=== PATIENT | male | born 1990 | race African-American/Black ===

== ENCOUNTER 2021-06-21 16:27 | Inpatient (IN) | payer SELFPAY ==
[2021-06-21] MEDS ORDERED: ceFAZolin 2 GM/DEX 5% 100 ML BAG ONE (16:33)
[2021-06-21] MEDS ORDERED: Boostrix 0.5 ML (Tdap) VIAL ONE ×2 (16:33→18:12)
[2021-06-21] MEDS ORDERED: Succinylcholine 200 MG/10 ml SYRINGE FS ONE (16:34)
[2021-06-21 16:43] LABS: #Basophils 0.1 thou/uL (0.0-0.2); #Eosinphils 0.2 thou/uL (0.0-0.7); #Lymphocytes 5.9 thou/uL (1.20-3.40); #Monocytes 0.8 thou/uL (0.11-0.59); #Neutrophils 12.1 thou/uL (1.40-6.50); %Basophils 0.4 % (0.0-1.0); %Eosinophils 0.8 % (0.0-10.0); %Monocytes 4.4 % (0.0-10.0); %Neutrophils 63.5 % (42.0-75.0); Hemoglobin 12.7 g/dL (14.0-18.0); Mean Corpuscular HGB CONC 33.6 g/dL (32.0-36.0); Mean Corpuscular Hemoglobin 30.8 pg (27.0-31.0); Mean Corpuscular Volume 91.8 fL (78.0-98.0); Mean Platelet Volume 9.4 fL (7.4-10.4); Platelet Count 317 thou/uL (130-400); RBC Distribution Width 11.6 % (11.5-14.5); White Blood Cell (WBC) Count 19.1 thou/uL (4.8-10.8)
[2021-06-21] MEDS ORDERED: Fentanyl 100 MCG/2 ML VIAL ONE (16:43)
[2021-06-21] MEDS ORDERED: Rocuronium Bromide 10 MG/ML (10ML VIAL) ONE ×2 (16:45→17:07)
[2021-06-21] MEDS ORDERED: Phenylephrine 10 MG/ML VIAL ONE ×2 (16:46→17:50)
[2021-06-21] MEDS ORDERED: Fentanyl 250 MCG/5 ML VIAL ONE (16:46)
[2021-06-21] MEDS ORDERED: Midazolam HCl 2 mg/2 ml Vial ONE ×2 (16:46→17:54)
[2021-06-21 16:57] LABS: Prothrombin Time 13.6 sec (12.0-14.7)
[2021-06-21 16:58] LABS: PTT 22.9 sec (22.9-36.1)
[2021-06-21 17:03] LABS: Bacteria/HPF None Seen HPF (None Seen); Bilirubin Negative (Negative); Blood, Urine Negative (Negative); Clarity Clear (Clear); Glucose, Urine (Dipstick) Greater than 1000 mg/dL (Negative); Ketone, Urine Negative (Negative); Leukocyte Negative Leu/uL (Negative); Nitrite Negative (Negative); Protein, Urine (Dipstick) Negative (Neg-Trace); RBC/HPF 0-3 HPF (0-3); Specific Gravity, Urine 1.031 (1.002-1.036); Squamous Epithelial None Seen HPF (0-3); Urobilinogen Normal mg/dL (Less than 2)
[2021-06-21 17:03] LABS: ALT (SGPT) 49 U/L (8-55); AST (SGOT) 38 U/L (5-34); Albumin 3.6 g/dL (3.5-5.0); Alkaline Phosphatase 60 U/L (40-110); Anion Gap 17 mmol/L (10-20); BUN (Urea Nitrogen) 13 mg/dL (8.9-20.6); Bilirubin, Total 0.3 mg/dL (0.2-1.2); Calc. Creatinine Clearance 0 mL/min (70-130); Calcium 8.7 mg/dL (7.8-10.44); Carbon Dioxide 23 mmol/L (22-29); Chloride 96 mmol/L (98-107); Globulin 2.9 g/dL (2.4-3.5); Potassium 3.2 mmol/L (3.5-5.1); Protein, Total 6.5 g/dL (6.0-8.3); Sodium 133 mmol/L (136-145)
[2021-06-21] MEDS ORDERED: Calcium Chloride 1 GM/10 ML Abboject SYRINGE ONE (17:07)
[2021-06-21 17:13] LABS: Glucose 778 mg/dL (70-105)
[2021-06-21] MEDS ORDERED: Insulin Regular 300 UNITS/3 ML VIAL ONE (18:05)
[2021-06-21] MEDS ORDERED: Heparin 5,000 UNITS/ML VIAL ONE (18:21)
[2021-06-21] MEDS ORDERED: Rocuronium Bromide 50 MG/5 ML VIAL ONE ×2 (19:38→20:49)
[2021-06-21] MEDS ORDERED: hydrALAZINE 20 MG/ML VIAL SLOW IVP PRN (20:38)
[2021-06-21] MEDS ORDERED: Ondansetron ODT 4 MG TAB PO PRN (20:38)
[2021-06-21] MEDS ORDERED: Dextrose 50% Abboject 50 ML SYRINGE SLOW IVP PRN (20:38)
[2021-06-21] MEDS ORDERED: Dextrose 5% in Water 1,000 ML IV PRN (20:38)
[2021-06-21] MEDS ORDERED: Ondansetron PF 4 MG/2 ML Vial IVP PRN (20:38)
[2021-06-21] MEDS ORDERED: fentaNYL Citrate/PF 2,000 MCG in Sodium Chloride 0.9% 60 ML IV PRN (20:43)
[2021-06-21] MEDS ORDERED: Morphine 4 MG/ML VIAL SLOW IVP PRN (20:54)
[2021-06-21] MEDS ORDERED: Fentanyl CADD 100 ML IV SCH (21:00)
[2021-06-21] MEDS ORDERED: Fentanyl CADD 100 ML ONE (21:51)
[2021-06-21] MEDS: Famotidine/PF 20 mg/2ml Vial SLOW IVP SCH (21:59)
[2021-06-21 22:02] LABS: #Monocytes 1.1 thou/uL (0.11-0.59); #Neutrophils 10.5 thou/uL (1.40-6.50); %Basophils 0.1 % (0.0-1.0); %Eosinophils 0.2 % (0.0-10.0); %Monocytes 7.8 % (0.0-10.0); Hemoglobin 13.3 g/dL (14.0-18.0); Mean Corpuscular Hemoglobin 31.4 pg (27.0-31.0); Mean Corpuscular Volume 87.4 fL (78.0-98.0); Mean Platelet Volume 9.7 fL (7.4-10.4); Platelet Count 201 thou/uL (130-400); RBC Distribution Width 12.3 % (11.5-14.5); Red Blood Cell (RBC) Count 4.22 mill/uL (4.70-6.10); White Blood Cell (WBC) Count 13.6 thou/uL (4.8-10.8)
[2021-06-21 22:16] LABS: Anion Gap 12 mmol/L (10-20); BUN (Urea Nitrogen) 13 mg/dL (8.9-20.6); Calc. Creatinine Clearance 0 mL/min (70-130); Calcium 8.8 mg/dL (7.8-10.44); Carbon Dioxide 21 mmol/L (22-29); Chloride 110 mmol/L (98-107); Glucose 402 mg/dL (70-105); Magnesium 1.9 mg/dL (1.6-2.6); Phosphorus 3.8 mg/dL (2.3-4.7); Potassium 4.2 mmol/L (3.5-5.1); Sodium 139 mmol/L (136-145)
[2021-06-21] MEDS: Sodium Chloride 0.9% 1,000 ML IV SCH (22:16)
[2021-06-21 22:22] LABS: Lactic Acid 3.3 mmol/L (0.5-2.2)
[2021-06-22] MEDS ORDERED: Bacitracin 1 PK TOP SCH (00:45)
[2021-06-22] MEDS ORDERED: HUMULIN R 100 UNITS in Sodium Chloride 0.9% 100 ML IVPB SCH (00:45)
[2021-06-22] MEDS: Lantus 1000 UNITS/10 ML VIAL SC SCH ×2 (00:59→21:26)
[2021-06-22 02:54] LABS: Lactic Acid 2.2 mmol/L (0.5-2.2)
[2021-06-22 02:59] LABS: Phosphorus 3.9 mg/dL (2.3-4.7)
[2021-06-22 03:00] LABS: Anion Gap 12 mmol/L (10-20); BUN (Urea Nitrogen) 13 mg/dL (8.9-20.6); Calc. Creatinine Clearance 202 mL/min (70-130); Calcium 8.8 mg/dL (7.8-10.44); Carbon Dioxide 23 mmol/L (22-29); Chloride 110 mmol/L (98-107); Glucose 310 mg/dL (70-105); Magnesium 1.7 mg/dL (1.6-2.6); Potassium 4.4 mmol/L (3.5-5.1); Sodium 141 mmol/L (136-145)
[2021-06-22 03:06] LABS: #Lymphocytes 1.4 thou/uL (1.20-3.40); #Monocytes 0.5 thou/uL (0.11-0.59); #Neutrophils 7.1 thou/uL (1.40-6.50); %Eosinophils 0.1 % (0.0-10.0); %Lymphocytes 15.7 % (21.0-51.0); %Neutrophils 79.3 % (42.0-75.0); Mean Corpuscular HGB CONC 37.1 g/dL (32.0-36.0); Mean Corpuscular Hemoglobin 32.2 pg (27.0-31.0); Mean Corpuscular Volume 86.7 fL (78.0-98.0); Mean Platelet Volume 9.3 fL (7.4-10.4); Platelet Count 183 thou/uL (130-400); RBC Distribution Width 12.6 % (11.5-14.5); Red Blood Cell (RBC) Count 4.03 mill/uL (4.70-6.10)
[2021-06-22 03:11] LABS: CK (CPK) 4873 U/L (30-200)
[2021-06-22 03:12] LABS: Actual Bicarbonate (HCO3a) 21.9 mEq/L (22-28); Base Excess (BEa) -2.7 mEq/L (-2.0 to +3.0); CO2 Tension 37.6 mmHg (35.0-45.0); Calcium, Ionized (arterial) 1.17 mmol/L (1.12-1.30); Carboxyhemoglobin (COHb) 0.9 gm% (0.0-3.0); Hemoglobin (Hb) 12.8 g/dL (14.0-18.0); O2 Tension (PaO2), arterial 151.8 mmHg (80.0-100.0); Potassium - ABG Lab 3.97 mmol/L (3.70-5.30); pH, Arterial 7.38 (7.35-7.45)
[2021-06-22 03:14] LABS: Puncture Site Arterial Line
[2021-06-22] MEDS: CEFAZOLIN 2 GM, Admixture Fee 1 EACH in Sodium Chloride 0.9% 100 ML IVPB SCH ×3 (04:55→20:41)
[2021-06-22] MEDS: Sodium Chloride 0.9% 1,000 ML IV SCH ×3 (04:55→21:41)
[2021-06-22 05:34] LABS: SARS-CoV-2 NAA Rapid Test Not Detected (NotDetected)
[2021-06-22] MEDS ORDERED: Magnesium Sulfate 3 GM in Sodium Chloride 0.9% 100 ML IVPB SCH (09:00)
[2021-06-22] MEDS ORDERED: Lantus 1000 UNITS/10 ML VIAL SC SCH (09:00)
[2021-06-22] MEDS: Famotidine/PF 20 mg/2ml Vial SLOW IVP SCH ×2 (09:17→21:25)
[2021-06-22] MEDS ORDERED: Lactated Ringer's 1,000 ML IV SCH (10:00)
[2021-06-22] MEDS: HumaLOG 300 UNITS/3 ML VIAL SC PRN ×3 (13:02→21:27)
[2021-06-22] MEDS ORDERED: diphenhydrAMINE 50 MG/ML VIAL IM PRN (15:00)
[2021-06-22] MEDS ORDERED: HYDROmorphone 10 mg/100 ml CADD IVPB PRN (15:00)
[2021-06-22] MEDS ORDERED: Promethazine HCl 25 MG/ML VIAL IM PRN (15:00)
[2021-06-22] MEDS ORDERED: diphenhydrAMINE 50 MG/ML VIAL IVP PRN (15:00)
[2021-06-22] MEDS ORDERED: Zolpidem Tartrate 5 MG TAB PO PRN (15:00)
[2021-06-22] MEDS ORDERED: Communication Order-Pharmacy FS SCH (15:00)
[2021-06-22] MEDS ORDERED: Naloxone HCl 0.4 mg/ml Vial IV PRN (15:00)
[2021-06-22] MEDS ORDERED: diphenhydrAMINE 25 MG CAP PO PRN (15:00)
[2021-06-22] MEDS ORDERED: Ondansetron PF 4 MG/2 ML Vial IVP PRN (15:00)
[2021-06-22] MEDS ORDERED: Sodium Chloride 0.9% 500 ML IV SCH (21:45)
[2021-06-22] MEDS ORDERED: Furosemide 20 MG/2 ML VIAL SLOW IVP SCH (23:45)
[2021-06-22] MEDS ORDERED: Magnesium 2 GM/50 ML 2 GM in Premix Bag 1 BAG IVPB SCH (23:45)
[2021-06-23] MEDS: HumaLOG 300 UNITS/3 ML VIAL SC PRN ×5 (00:29→18:20)
[2021-06-23] MEDS: CEFAZOLIN 2 GM, Admixture Fee 1 EACH in Sodium Chloride 0.9% 100 ML IVPB SCH ×3 (03:41→23:08)
[2021-06-23 04:06] LABS: #Lymphocytes 2.3 thou/uL (1.20-3.40); #Monocytes 0.9 thou/uL (0.11-0.59); #Neutrophils 7.9 thou/uL (1.40-6.50); %Basophils 0.3 % (0.0-1.0); %Eosinophils 0.1 % (0.0-10.0); %Lymphocytes 20.4 % (21.0-51.0); %Neutrophils 71.2 % (42.0-75.0); Hemoglobin 11.1 g/dL (14.0-18.0); Mean Corpuscular Hemoglobin 29.9 pg (27.0-31.0); Mean Corpuscular Volume 90.6 fL (78.0-98.0); Mean Platelet Volume 9.1 fL (7.4-10.4); Platelet Count 186 thou/uL (130-400); RBC Distribution Width 12.9 % (11.5-14.5); Red Blood Cell (RBC) Count 3.71 mill/uL (4.70-6.10); White Blood Cell (WBC) Count 11.1 thou/uL (4.8-10.8)
[2021-06-23 04:43] LABS: Anion Gap 13 mmol/L (10-20); BUN (Urea Nitrogen) 10 mg/dL (8.9-20.6); CK (CPK) 1784 U/L (30-200); Calc. Creatinine Clearance 185 mL/min (70-130); Calcium 8.1 mg/dL (7.8-10.44); Carbon Dioxide 25 mmol/L (22-29); Chloride 110 mmol/L (98-107); Glucose 230 mg/dL (70-105); Magnesium 2.5 mg/dL (1.6-2.6); Potassium 4.2 mmol/L (3.5-5.1); Sodium 144 mmol/L (136-145)
[2021-06-23 05:19] LABS: Troponin I Less than 0.010 ng/mL (< 0.028)
[2021-06-23] MEDS ORDERED: HYDROmorphone 10 mg/100 ml CADD IVPB PRN (06:38)
[2021-06-23] MEDS: Sodium Chloride 0.9% 1,000 ML IV SCH (06:57)
[2021-06-23] MEDS ORDERED: Sodium Phosphate 15 MMOL in Sodium Chloride 0.9% 250 ML 250 ML IVPB SCH (07:45)
[2021-06-23] MEDS ORDERED: Lantus 1000 UNITS/10 ML VIAL SC SCH ×2 (09:00→21:00)
[2021-06-23] MEDS: Enoxaparin Sodium 40 MG/0.4 ML SYRINGE SC SCH (10:26)
[2021-06-23] MEDS: Aspirin 81 mg Enteric Coated Tablet PO SCH (10:27)
[2021-06-23] MEDS: Famotidine/PF 20 mg/2ml Vial SLOW IVP SCH ×2 (10:27→22:20)
[2021-06-23] MEDS: Bacitracin 1 PK TOP SCH ×2 (10:27→22:20)
[2021-06-23 13:52] LABS: Actual Bicarbonate (HCO3a) 21.6 mEq/L (22-28); Analyzer IN Cardio OR; Base Excess (BEa) -3.9 mEq/L (-2.0 to +3.0); CO2 Tension 41.3 mmHg (35.0-45.0); Calcium, Ionized (arterial) 1.21 mmol/L (1.12-1.30); Carboxyhemoglobin (COHb) 1.2 gm% (0.0-3.0); Hemoglobin (Hb) 12.7 g/dL (14.0-18.0); pH, Arterial 7.34 (7.35-7.45)
[2021-06-23 13:53] LABS: Actual Bicarbonate (HCO3a) 21.9 mEq/L (22-28); Analyzer IN Cardio OR; Base Excess (BEa) -3.6 mEq/L (-2.0 to +3.0); CO2 Tension 41.4 mmHg (35.0-45.0); Calcium, Ionized (arterial) 1.41 mmol/L (1.12-1.30); Carboxyhemoglobin (COHb) 0.7 gm% (0.0-3.0); Hemoglobin (Hb) 10.9 g/dL (14.0-18.0); O2 Tension (PaO2), arterial 488.8 mmHg (80.0-100.0); Potassium - ABG Lab 3.49 mmol/L (3.70-5.30); pH, Arterial 7.34 (7.35-7.45)
[2021-06-23 13:53] LABS: Actual Bicarbonate (HCO3a) 19.7 mEq/L (22-28); Analyzer IN Cardio OR; Base Excess (BEa) -5.6 mEq/L (-2.0 to +3.0); CO2 Tension 37.8 mmHg (35.0-45.0); Calcium, Ionized (arterial) 1.28 mmol/L (1.12-1.30); Carboxyhemoglobin (COHb) 0.4 gm% (0.0-3.0); Hemoglobin (Hb) 11.4 g/dL (14.0-18.0); Potassium - ABG Lab 3.71 mmol/L (3.70-5.30); pH, Arterial 7.34 (7.35-7.45)
[2021-06-23 13:53] LABS: Actual Bicarbonate (HCO3a) 20.9 mEq/L (22-28); Analyzer IN Cardio OR; CO2 Tension 41.5 mmHg (35.0-45.0); Calcium, Ionized (arterial) 1.24 mmol/L (1.12-1.30); Carboxyhemoglobin (COHb) 0.6 gm% (0.0-3.0); Hemoglobin (Hb) 12.2 g/dL (14.0-18.0); Potassium - ABG Lab 4.03 mmol/L (3.70-5.30); pH, Arterial 7.32 (7.35-7.45)
[2021-06-23 13:54] LABS: Actual Bicarbonate (HCO3a) 22.1 mEq/L (22-28); Base Excess (BEa) -2.9 mEq/L (-2.0 to +3.0); Carboxyhemoglobin (COHb) 0.9 gm% (0.0-3.0); Hemoglobin (Hb) 11.2 g/dL (14.0-18.0); O2 Tension (PaO2), arterial 343.6 mmHg (80.0-100.0); Potassium - ABG Lab 3.75 mmol/L (3.70-5.30); pH, Arterial 7.37 (7.35-7.45)
[2021-06-23 13:54] LABS: Actual Bicarbonate (HCO3a) 22.7 mEq/L (22-28); Analyzer IN Cardio OR; Base Excess (BEa) -2.3 mEq/L (-2.0 to +3.0); Calcium, Ionized (arterial) 1.08 mmol/L (1.12-1.30); Carboxyhemoglobin (COHb) 0.6 gm% (0.0-3.0); Hemoglobin (Hb) 11.2 g/dL (14.0-18.0); pH, Arterial 7.37 (7.35-7.45)
[2021-06-23 13:55] LABS: Analyzer IN Cardio OR; Calcium, Ionized (arterial) 1.02 mmol/L (1.12-1.30); Puncture Site Arterial Line
[2021-06-23 13:56] LABS: Puncture Site Arterial Line
[2021-06-23 13:56] LABS: O2 Tension (PaO2), arterial 506.8 mmHg (80.0-100.0); Puncture Site Arterial Line
[2021-06-23 13:57] LABS: Puncture Site Arterial Line
[2021-06-23 13:58] LABS: O2 Tension (PaO2), arterial 524.6 mmHg (80.0-100.0); Puncture Site Arterial Line
[2021-06-23 13:58] LABS: Puncture Site Arterial Line
[2021-06-23] MEDS: traMADol HCl 50 MG TAB PO PRN (18:20)
[2021-06-23] MEDS: Acetaminophen 500 MG TAB PO SCH (18:20)
[2021-06-23] MEDS: traMADol HCl 50 MG TAB PO SCH (18:20)
[2021-06-23] MEDS: Gabapentin 300 MG CAP PO SCH (22:18)
[2021-06-23] MEDS: Senokot S 8.6-50 MG TAB PO SCH (22:18)
[2021-06-23] MEDS: Metoprolol Tartrate 25 MG TAB PO SCH (22:20)
[2021-06-24] MEDS: Acetaminophen 500 MG TAB PO SCH ×5 (00:13→23:15)
[2021-06-24] MEDS: traMADol HCl 50 MG TAB PO SCH ×5 (00:14→23:16)
[2021-06-24] MEDS: HumaLOG 300 UNITS/3 ML VIAL SC PRN ×5 (01:44→23:43)
[2021-06-24] MEDS: CEFAZOLIN 2 GM, Admixture Fee 1 EACH in Sodium Chloride 0.9% 100 ML IVPB SCH ×3 (04:53→20:28)
[2021-06-24 06:54] LABS: #Lymphocytes 2.2 thou/uL (1.20-3.40); #Monocytes 0.8 thou/uL (0.11-0.59); #Neutrophils 7.2 thou/uL (1.40-6.50); %Basophils 0.3 % (0.0-1.0); %Eosinophils 0.5 % (0.0-10.0); %Lymphocytes 21.5 % (21.0-51.0); %Monocytes 7.4 % (0.0-10.0); %Neutrophils 70.4 % (42.0-75.0); Hemoglobin 9.6 g/dL (14.0-18.0); Mean Corpuscular HGB CONC 33.1 g/dL (32.0-36.0); Mean Corpuscular Hemoglobin 29.9 pg (27.0-31.0); Mean Corpuscular Volume 90.4 fL (78.0-98.0); Mean Platelet Volume 8.4 fL (7.4-10.4); Platelet Count 198 thou/uL (130-400); RBC Distribution Width 12.4 % (11.5-14.5); Red Blood Cell (RBC) Count 3.22 mill/uL (4.70-6.10); White Blood Cell (WBC) Count 10.3 thou/uL (4.8-10.8)
[2021-06-24 07:13] LABS: Anion Gap 10 mmol/L (10-20); BUN (Urea Nitrogen) 13 mg/dL (8.9-20.6); Calc. Creatinine Clearance 231 mL/min (70-130); Calcium 8.1 mg/dL (7.8-10.44); Carbon Dioxide 28 mmol/L (22-29); Chloride 108 mmol/L (98-107); Glucose 225 mg/dL (70-105); Magnesium 2.4 mg/dL (1.6-2.6); Phosphorus 2.3 mg/dL (2.3-4.7); Potassium 3.8 mmol/L (3.5-5.1); Sodium 142 mmol/L (136-145)
[2021-06-24] MEDS: Metoprolol Tartrate 25 MG TAB PO SCH ×2 (08:57→20:31)
[2021-06-24] MEDS: Gabapentin 300 MG CAP PO SCH ×3 (08:57→20:29)
[2021-06-24] MEDS: Bacitracin 1 PK TOP SCH ×2 (08:57→20:28)
[2021-06-24] MEDS: Aspirin 81 mg Enteric Coated Tablet PO SCH (08:59)
[2021-06-24] MEDS: Polyethylene Glycol 3350 17 GM Packet PO SCH (08:59)
[2021-06-24] MEDS: Famotidine 20 MG TAB PO SCH ×2 (08:59→20:29)
[2021-06-24] MEDS: Enoxaparin Sodium 40 MG/0.4 ML SYRINGE SC SCH (08:59)
[2021-06-24] MEDS: Lantus 1000 UNITS/10 ML VIAL SC SCH ×2 (08:59→20:30)
[2021-06-24] MEDS: Senokot S 8.6-50 MG TAB PO SCH ×2 (09:00→20:31)
[2021-06-24] MEDS ORDERED: PHOS-NAK 1 PKT PACK PO SCH (09:00)
[2021-06-24] MEDS ORDERED: Ondansetron PF 4 MG/2 ML Vial ONE ×2 (11:03→11:32)
[2021-06-24] MEDS ORDERED: SUGAMMADEX SODIUM 200 MG/2 ML VIAL ONE (11:03)
[2021-06-24] MEDS ORDERED: Famotidine/PF 20 mg/2ml Vial ONE (11:03)
[2021-06-24] MEDS ORDERED: Fentanyl 100 MCG/2 ML VIAL ONE ×2 (11:03→14:50)
[2021-06-24] MEDS ORDERED: Ondansetron HCl/PF 4 MG/2 ML Vial IVP PRN ×2 (11:25→13:45)
[2021-06-24] MEDS ORDERED: Promethazine HCl 25 MG/ML VIAL IVPB PRN ×2 (11:25→13:45)
[2021-06-24] MEDS ORDERED: Meperidine HCl/PF 25 MG/ML VIAL SLOW IVP PRN ×2 (11:25→13:45)
[2021-06-24] MEDS ORDERED: Promethazine HCl 25 MG/ML VIAL IM PRN ×2 (11:25→13:45)
[2021-06-24] MEDS ORDERED: Rocuronium Bromide 10 MG/ML (10ML VIAL) ONE (11:32)
[2021-06-24] MEDS ORDERED: Metoclopramide HCl 10 MG/2 ML VIAL ONE (11:32)
[2021-06-24] MEDS ORDERED: PROPOFOL 200 MG/20 ML VIAL ONE (11:32)
[2021-06-24] MEDS ORDERED: Ketorolac Tromethamine 30 MG/ML VIAL ONE (11:32)
[2021-06-24] MEDS ORDERED: Lidocaine 1% PF 5 ML VIAL ONE (11:32)
[2021-06-24] MEDS ORDERED: Labetalol HCl 100 MG/20 ML VIAL SLOW IVP PRN (13:46)
[2021-06-24 14:18] VITALS: BMI 42.1
[2021-06-25] MEDS: CEFAZOLIN 2 GM, Admixture Fee 1 EACH in Sodium Chloride 0.9% 100 ML IVPB SCH (04:30)
[2021-06-25] MEDS: Acetaminophen 500 MG TAB PO SCH ×4 (05:08→23:35)
[2021-06-25] MEDS: traMADol HCl 50 MG TAB PO SCH ×4 (05:08→23:35)
[2021-06-25 06:55] LABS: Anion Gap 10 mmol/L (10-20); BUN (Urea Nitrogen) 14 mg/dL (8.9-20.6); Calc. Creatinine Clearance 240 mL/min (70-130); Calcium 7.6 mg/dL (7.8-10.44); Carbon Dioxide 30 mmol/L (22-29); Chloride 107 mmol/L (98-107); Glucose 159 mg/dL (70-105); Magnesium 2.2 mg/dL (1.6-2.6); Phosphorus 2.7 mg/dL (2.3-4.7); Potassium 3.7 mmol/L (3.5-5.1); Sodium 143 mmol/L (136-145)
[2021-06-25 07:15] LABS: Band 7 % (5-11); Eosinophils 3 % (0-10); Hemoglobin 9.3 g/dL (14.0-18.0); Lymphocytes 36 % (21-51); MDiff Complete? YES; Mean Corpuscular HGB CONC 33.6 g/dL (32.0-36.0); Mean Corpuscular Hemoglobin 30.6 pg (27.0-31.0); Mean Corpuscular Volume 91.2 fL (78.0-98.0); Mean Platelet Volume 8.4 fL (7.4-10.4); Metamyelocyte 1 % (0-0); Monocytes 2 % (0-10); Myelocyte 1 % (0-0); Neutrophil 48 % (42-75); Platelet Count 221 thou/uL (130-400); Platelet Morphology Comment Appears Adequate; Polychromasia SLIGHT = 2-3 cells (100X) (0-2/hpf); RBC Distribution Width 12.2 % (11.5-14.5); Reactive Lymphocytes 2 % (0-10); Red Blood Cell (RBC) Count 3.03 mill/uL (4.70-6.10); White Blood Cell (WBC) Count 8.2 thou/uL (4.8-10.8)
[2021-06-25] MEDS ORDERED: Potassium Phosphate 15 MMOL in Sodium Chloride 0.9% 250 ML 250 ML IVPB SCH (08:15)
[2021-06-25] MEDS: Lantus 1000 UNITS/10 ML VIAL SC SCH ×2 (09:23→20:16)
[2021-06-25] MEDS: HumaLOG 300 UNITS/3 ML VIAL SC PRN ×3 (09:23→17:31)
[2021-06-25] MEDS: Metoprolol Tartrate 25 MG TAB PO SCH ×2 (09:24→20:16)
[2021-06-25] MEDS: Enoxaparin Sodium 40 MG/0.4 ML SYRINGE SC SCH (09:24)
[2021-06-25] MEDS: traMADol HCl 50 MG TAB PO PRN (09:26)
[2021-06-25] MEDS: Ibuprofen 800 MG TAB PO PRN ×2 (09:28→20:18)
[2021-06-25] MEDS: Gabapentin 300 MG CAP PO SCH ×3 (09:30→20:16)
[2021-06-25] MEDS: Aspirin 81 mg Enteric Coated Tablet PO SCH (09:30)
[2021-06-25] MEDS: Senokot S 8.6-50 MG TAB PO SCH ×2 (09:30→20:15)
[2021-06-25] MEDS: Polyethylene Glycol 3350 17 GM Packet PO SCH (09:52)
[2021-06-25] MEDS: Bacitracin 1 PK TOP SCH ×2 (09:52→20:16)
[2021-06-25] MEDS: Cyclobenzaprine 10 MG TAB PO PRN (20:19)
[2021-06-26] MEDS: traMADol HCl 50 MG TAB PO SCH ×4 (05:22→23:24)
[2021-06-26] MEDS: Acetaminophen 500 MG TAB PO SCH ×4 (05:22→23:25)
[2021-06-26] MEDS: Cyclobenzaprine 10 MG TAB PO PRN ×2 (08:27→23:24)
[2021-06-26] MEDS: traMADol HCl 50 MG TAB PO PRN (08:27)
[2021-06-26] MEDS: Senokot S 8.6-50 MG TAB PO SCH ×2 (08:30→19:59)
[2021-06-26] MEDS: Aspirin 81 mg Enteric Coated Tablet PO SCH (08:31)
[2021-06-26] MEDS: Gabapentin 300 MG CAP PO SCH ×3 (08:31→19:59)
[2021-06-26] MEDS: Metoprolol Tartrate 25 MG TAB PO SCH ×2 (08:31→19:59)
[2021-06-26] MEDS: Bacitracin 1 PK TOP SCH ×2 (08:31→20:00)
[2021-06-26] MEDS: Enoxaparin Sodium 40 MG/0.4 ML SYRINGE SC SCH (08:32)
[2021-06-26] MEDS: Polyethylene Glycol 3350 17 GM Packet PO SCH (08:33)
[2021-06-26] MEDS: Lantus 1000 UNITS/10 ML VIAL SC SCH ×2 (08:33→20:00)
[2021-06-26] MEDS: HumaLOG 300 UNITS/3 ML VIAL SC PRN (12:33)
[2021-06-27] MEDS: traMADol HCl 50 MG TAB PO SCH ×2 (04:57→11:44)
[2021-06-27] MEDS: Acetaminophen 500 MG TAB PO SCH ×2 (04:57→11:43)
[2021-06-27] MEDS: Lantus 1000 UNITS/10 ML VIAL SC SCH (08:46)
[2021-06-27] MEDS: Metoprolol Tartrate 25 MG TAB PO SCH (08:47)
[2021-06-27] MEDS: Senokot S 8.6-50 MG TAB PO SCH (08:47)
[2021-06-27] MEDS: Enoxaparin Sodium 40 MG/0.4 ML SYRINGE SC SCH (08:47)
[2021-06-27] MEDS: Gabapentin 300 MG CAP PO SCH (08:48)
[2021-06-27] MEDS: Polyethylene Glycol 3350 17 GM Packet PO SCH (08:51)
[2021-06-27 11:24] VITALS: BP 137/85; TEMP 97.8
[2021-06-27] MEDS: traMADol HCl 50 MG TAB PO PRN (11:50)
[2021-06-27] MEDS: Ibuprofen 800 MG TAB PO PRN (11:53)
== END 2021-06-27 13:22 | disposition home or self-care (01) | DRG 957 ==
LOC: EDBD 16:27 → ERS 16:27 → EEVIPCON 16:27 → CCU 17:02 → SDC/OP 17:06 → CCU 20:38 → SURG A 06-23 14:25
PROVIDERS: ADMIT Surgery; ATTEND Surgery
PROC: 03R Upper Arteries, Replacement (ICD-10-PCS; principal; 2021-06-21)
PROC: 03Q70ZZ Repair Right Brachial Artery, Open Approach (ICD-10-PCS; 2021-06-21)
PROC: 05Q Upper Veins, Repair (ICD-10-PCS; 2021-06-21)
PROC: 06BQ0ZZ Excision of Left Saphenous Vein, Open Approach (ICD-10-PCS; 2021-06-21)
PROC: 30233K0 Transfusion of Autologous Frozen Plasma into Peripheral Vein, Percutaneous Approach (ICD-10-PCS; 2021-06-21)
PROC: 30233N1 Transfusion of Nonautologous Red Blood Cells into Peripheral Vein, Percutaneous Approach (ICD-10-PCS; 2021-06-21)
PROC: 5A1935Z Respiratory Ventilation, Less than 24 Consecutive Hours (ICD-10-PCS; 2021-06-21)
PROC: 0W9900Z Drainage of Right Pleural Cavity with Drainage Device, Open Approach (ICD-10-PCS; 2021-06-21)
PROC: 0BH17EZ Insertion of Endotracheal Airway into Trachea, Via Natural or Artificial Opening (ICD-10-PCS; 2021-06-21)
PROC: 0D9670Z Drainage of Stomach with Drainage Device, Via Natural or Artificial Opening (ICD-10-PCS; 2021-06-21)
PROC: 0KBK0ZZ Excision of Right Abdomen Muscle, Open Approach (ICD-10-PCS; 2021-06-21)
PROC: 0KBH0ZZ Excision of Right Thorax Muscle, Open Approach (ICD-10-PCS; 2021-06-21)
PROC: 0KB70ZZ Excision of Right Upper Arm Muscle, Open Approach (ICD-10-PCS; 2021-06-21)
PROC: 0QB20ZZ Excision of Right Pelvic Bone, Open Approach (ICD-10-PCS; 2021-06-21)
PROC: 0JQ60ZZ Repair Chest Subcutaneous Tissue and Fascia, Open Approach (ICD-10-PCS; 2021-06-24)
PROC: 0JQ80ZZ Repair Abdomen Subcutaneous Tissue and Fascia, Open Approach (ICD-10-PCS; 2021-06-24)
PROC: 0JQC0ZZ Repair Pelvic Region Subcutaneous Tissue and Fascia, Open Approach (ICD-10-PCS; 2021-06-24)
PROC: 0JQD0ZZ Repair Right Upper Arm Subcutaneous Tissue and Fascia, Open Approach (ICD-10-PCS; 2021-06-24)
PROC: 3E0G76Z Introduction of Nutritional Substance into Upper GI, Via Natural or Artificial Opening (ICD-10-PCS; 2021-06-26)
DX: S45.09 Other specified injury of axillary artery (principal); J96.00 Acute respiratory failure, unspecified whether with hypoxia or hypercapnia; S27.0XXA Traumatic pneumothorax, initial encounter; S21.131A Puncture wound without foreign body of right front wall of thorax without penetration into thoracic cavity, initial encounter; S45.191A Other specified injury of brachial artery, right side, initial encounter; S45 Injury of blood vessels at shoulder and upper arm level; D62 Acute posthemorrhagic anemia; Z20.822 Contact with and (suspected) exposure to COVID-19; Z23 Encounter for immunization; S31.139A Puncture wound of abdominal wall without foreign body, unspecified quadrant without penetration into peritoneal cavity, initial encounter; S01.03XA Puncture wound without foreign body of scalp, initial encounter; S31.133A Puncture wound of abdominal wall without foreign body, right lower quadrant without penetration into peritoneal cavity, initial encounter; S31.030A Puncture wound without foreign body of lower back and pelvis without penetration into retroperitoneum, initial encounter; T79.6XXA Traumatic ischemia of muscle, initial encounter; S44.31XA Injury of axillary nerve, right arm, initial encounter; I10 Essential (primary) hypertension; E11.9 Type 2 diabetes mellitus without complications; E83.42 Hypomagnesemia; Z78.1 Physical restraint status; W33.01XA Accidental discharge of shotgun, initial encounter; Z79.84 Long term (current) use of oral hypoglycemic drugs
CPT/HCPCS: 31500; 36416; 36430; 51702; 71045; 72170; 80048; 80053; 81001; 82550; 82805; 83605; 83735; 84100; 84484; 85007; 85025; 85027; 85610; 85730; 86850; 86900; 86901; 90471; 90715; 93005; 93010; 93923; 94002; 96365; 96375; G0390; J0690; J1644; J1650; J1815; J1885; J1940; J2250; J2370; J2405; J2704; J2765; J3010; J3475; J3490; J7030; J7050; J7120; P9016; P9035; P9059; S0028; U0002